=== PATIENT | female | born 1990 | race Caucasian/White ===

== ENCOUNTER 2021-03-08 10:27 | Emergency (ER) | payer MEDICAID ==
[~2021-03-08] VITALS: Ht 167.6 cm; Wt 68.5 kg
[2021-03-08 10:30] VITALS: BP 136/97
--- NOTE | 2021-03-08 10:59 | NUR ---
31 Y/O FEMALE C/O MID ABD PAIN 8/10 DESCRIBES SHARP X1WEEK. PT STATES POSITION RELIEFS SYMPTOMS. DENIES FEVER/+CHILLS. STATES +N/-V. PT STATED THE PAIN IS NON-RADIAITNG AND ONLY FELT IN UPPER MID-ABDOMEN. BOWEL SOUNDS ACTIVE AND NO TENDERNESS NOTED. PT ADMITS TO EATING SPICY FOODS BEFORE THE ABDOMINAL PAIN OCCURED. EQUAL CHEST RISE AND FALL NOTED, AND RESPIRATIONS UNLABORED. SKIN DRY AND INTACT PMH: GASTRITIS NKA
--- NOTE | 2021-03-08 11:05 | NUR ---
STABLISHED IV ACCES TO RIGHT AC 20 G. BLOOD COLLECTED. BLOOD WALKED TO LAB
--- NOTE | 2021-03-08 11:09 | NUR ---
DR. NELSON BEDSIDE EVALUATING PT
[2021-03-08 11:18] LABS: BASOPHILS % (AUTO) 0.8 % (0.0-2.0); EOSINOPHILS # (AUTO) 0.1 K/uL (0-0.4); EOSINOPHILS % (AUTO) 1.9 % (0.0-4.0); HEMATOCRIT 38.6 % (36-48); LYMPHOCYTES # (AUTO) 1.3 K/uL (2.5-16.5); LYMPHOCYTES % (AUTO) 22.3 % (20.5-51.1); MEAN CORPUSCULAR HEMOGLOBIN 31 pg (27-31); MEAN CORPUSCULAR HGB CONC 34 g/dL (33-37); MEAN CORPUSCULAR VOLUME 92.3 fL (80-94); MONOCYTES # (AUTO) 0.4 K/uL (0.8-1.0); MONOCYTES % (AUTO) 6.1 % (1.7-9.3); NEUTROPHILS # (AUTO) 4.1 K/uL (1.8-7.7); NEUTROPHILS % (AUTO) 68.9 % (42.2-75.2); PLATELET COUNT (AUTO) 247 K/uL (140-450); RED BLOOD CELL COUNT(AUTO) 4.18 MIL/uL (4.20-5.40); RED CELL DISTRIBUTION WIDTH 13.9 % (11.6-13.7); WHITE BLOOD COUNT (AUTO) 5.9 K/uL (4.8-10.8)
[2021-03-08 11:40] LABS: ALBUMIN 4.3 g/dL (3.4-5.0); CARBON DIOXIDE 25.9 mmol/L (21-32); CREATININE 0.9 mg/dL (0.6-1.3); POTASSIUM 3.9 mmol/L (3.5-5.1); TOTAL BILIRUBIN 0.8 mg/dL (0.0-1.0)
--- NOTE | 2021-03-08 12:42 | NUR ---
Patient appears to be resting comfortably in bed with eyes open. Vital Signs within normal limits and charted. Respirations even and unlabored. Daughter bedside with patient
[2021-03-08] MEDS ORDERED: ONDANSETRON 4 MG/2 ML VIAL IVP ONE (13:45)
--- NOTE | 2021-03-08 14:11 | NUR ---
PROVIDED PATIENT WITH CUP OF WATER BEDSIDE. PROVIDED PT DAUGHTER WITH JUICE AND CRACKERS
--- NOTE | 2021-03-08 14:13 | NUR ---
Patient appears to be resting comfortably in bed. Vital Signs within normal limits. Respirations even and unlabored.
[2021-03-08] MEDS ORDERED: OMEP20EC11 PO (14:17)
[2021-03-08] MEDS ORDERED: ONDA-188 PO (14:17)
[2021-03-08 14:28] VITALS: BP 102/65
--- NOTE | 2021-03-08 14:29 | NUR ---
Patient discharged with v/s stable. Written and verbal after care instructions ABOUT ABDOMINAL PAIN given and explained. Patient alert, oriented and verbalized understanding of instructions. Ambulatory with steady gait. All questions addressed prior to discharge. ID band removed. Patient advised to follow up with PMD. Rx of ZOFRAN AND OMEPRAZOLE given. Patient educated on indication of medication including possible reaction and side effects. Opportunity to ask questions provided and answered.
== END 2021-03-08 14:28 | disposition home or self-care (01) ==
LOC: MED 10:27
DX: R10.10 Upper abdominal pain, unspecified (principal); R11.0 Nausea; K21.9 Gastro-esophageal reflux disease without esophagitis; Z79.899 Other long term (current) drug therapy
CPT/HCPCS: 36415; 80053; 81002; 81025; 83690; 84702; 85025; 96374; 99283; J2405